=== PATIENT | female | born 1975 | race African-American/Black ===

== ENCOUNTER 2016-04-19 15:55 | Outpatient (CLI) | payer OTHER ==
[2016-04-19 17:04] LABS: #Basophils 0.1 thou/uL (0.0-0.2); #Eosinphils 0.2 thou/uL (0.0-0.7); #Lymphocytes 2.6 thou/uL (1.20-3.40); #Monocytes 0.6 thou/uL (0.11-0.59); #Neutrophils 4.7 thou/uL (1.40-6.50); %Basophils 0.7 % (0.0-1.0); %Monocytes 7.3 % (0.0-10.0); Hematocrit 40.8 % (36.0-47.0); Mean Platelet Volume 5.8 fL (7.4-10.4); Microcytosis SLIGHT = 6-15 cells (100X) (0-5/hpf); Red Blood Cell (RBC) Count 5.32 mill/uL (4.20-5.40); White Blood Cell (WBC) Count 8.1 thou/uL (4.8-10.8)
[2016-04-19 17:24] LABS: ALT (SGPT) 18 U/L (0-55); AST (SGOT) 15 U/L (5-34); Alkaline Phosphatase 100 U/L (40-150); Anion Gap 14 mmol/L (10-20); BUN (Urea Nitrogen) 12 mg/dL (7.0-18.7); Bilirubin, Total 0.2 mg/dL (0.2-1.2); Calc. Creatinine Clearance 0 mL/min (70-130); Calcium 9.7 mg/dL (7.8-10.44); Carbon Dioxide 24 mmol/L (22-29); Chloride 105 mmol/L (98-107); Estimated GFR-MDRD 87; Globulin 4.2 g/dL (2.4-3.5); Protein, Total 8.2 g/dL (6.0-8.3)
[2016-04-20 16:51] LABS: Microalbumin Urine 5.9 mg/dL (0.5-50.0)
== END 2016-04-19 15:56 | disposition home or self-care (01) ==
LOC: HPCALD 15:55
PROVIDERS: ATTEND Family Medicine
DX: E11.65 Type 2 diabetes mellitus with hyperglycemia (principal)
CPT/HCPCS: 36415; 80053; 82043; 84443; 85025